=== PATIENT | male | born 1970 | race Caucasian/White ===

== ENCOUNTER 2018-02-09 15:47 | Emergency (ER) | payer OTHER ==
[~2018-02-09] VITALS: Ht 185.4 cm; Wt 95.3 kg
[2018-02-09 15:54] VITALS: BP 130/82
--- NOTE | 2018-02-09 16:21 | CT SCAN REPORT ---
EXAMINATION: CT ABDOMEN AND PELVIS WITHOUT CONTRAST CLINICAL INFORMATION: Left lower quadrant pain. Left flank pain. COMPARISON: None TECHNIQUE: Multidetector volumetric imaging was performed from the superior aspect of the liver through the pubic symphysis. Sagittal and coronal reformatted images were obtained on the technologist's workstation. DLP: 504 mGy-cm FINDINGS: LUNG BASES: The visualized lung bases are unremarkable. LIVER, GALLBLADDER, AND BILIARY TREE: The liver is diffusely low in attenuation. There are increased areas of density adjacent to the gallbladder fossa consistent with fatty sparing. No definite focal lesion identified on this noncontrast study. The gallbladder is unremarkable with no evidence of radiopaque gallstones, gallbladder wall thickening, or obvious pericholecystic inflammatory changes. PANCREAS: Unremarkable. SPLEEN: Unremarkable. ADRENAL GLANDS: Unremarkable. KIDNEYS AND URETERS: The right kidney is normal in size, shape, and attenuation. No hydronephrosis, hydroureter. There is a 1 mm density in the upper pole. There is a similar finding in the lower pole.. No perinephric stranding. The left kidney is normal in size. There is mild left renal hydronephrosis. The proximal ureter is minimally dilated. The distal ureter appears normal in caliber. No radiodense renal stone identified. BLADDER: Unremarkable. GASTROINTESTINAL TRACT: No dilated loops of small or large bowel. There is a small hiatal hernia. No intra-abdominal free air or free fluid. Normal appendix. ABDOMINAL WALL: Bilateral fat-containing inguinal hernias, right greater than left. LYMPH NODES: Normal. VASCULAR: Unremarkable. PELVIC VISCERA: The prostate appears within normal limits for size. Seminal vesicles are symmetric and within normal limits. OSSEOUS STRUCTURES: No suspicious lytic or blastic lesion. IMPRESSION: 1. Limited noncontrast study. 2. Mild left renal hydronephrosis. No definite radiodense obstructing stone. The majority of the ureter is essentially within normal limits for caliber. 3. Severe hepatic steatosis. 4. 2 tiny 1 mm nonobstructing stones identified within the collecting system of the right kidney.
[2018-02-09 16:34] LABS: ABSOLUTE BASOPHIL COUNT 0 /CUMM (0.0-0.2); ABSOLUTE EOSINOPHIL COUNT 0.1 /CUMM (0.0-0.7); ABSOLUTE GRANULOCYTE CT 5.7 /CUMM (1.4-6.5); ABSOLUTE LYMPH COUNT 1.9 /CUMM (1.2-3.4); ABSOLUTE MONOCYTE COUNT 0.9 /CUMM (0.10-0.60); BASOPHIL % 0.4 % (0.0-2.0); EOSINOPHIL % 1.4 % (0-5); GRANULOCYTE % 65.9 % (42.2-75.2); HEMATOCRIT 43.5 % (42-52); MEAN CORPUSCULAR HGB 29.8 PG (27.0-31.0); MEAN CORPUSCULAR HGB CONC 33.9 G/DL (33.0-37.0); MEAN CORPUSCULAR VOLUME 87.8 FL (80.0-94.0); PLATELET COUNT 258 /CUMM (130-400); RBC DISTRIBUTION WIDTH 13.1 % (11.5-14.5); RED BLOOD CELL CT 4.95 /CUMM (4.70-6.10); WHITE BLOOD CELL COUNT 8.6 /CUMM (4.8-10.8)
[2018-02-09] MEDS ORDERED: ZOFRAN ODT4 M1 SL (17:25)
[2018-02-09] MEDS ORDERED: IBUPROFEN800 M1 PO (17:25)
[2018-02-09] MEDS ORDERED: FLOMAX0.4 M1 PO (17:25)
--- NOTE | 2018-02-09 17:26 | ED GI/GU/ABDOMINAL COMPLAINT ---
History of Present Illness General Chief Complaint: General Adult Stated Complaint: PT WAS SENT IN BY URGENT CARE Source: patient Exam Limitations: no limitations Vital Signs & Intake/Output Vital Signs & Intake/Output ED Intake and Output 02/10 0000 02/09 1200 Intake Total 0 Output Total Balance 0 Intake, Oral 0 Patient 210 lb Weight Weight Reported by Patient Measurement Method Allergies Coded Allergies: No Known Allergies (02/09/18) Reconcile Medications Ibuprofen 800 MG TABLET 1 TAB PO TID PRN PAIN Ondansetron (Zofran Odt) 4 MG TAB.RAPDIS 1 TAB SL TID PRN NAUSEA Tamsulosin HCl (Flomax) 0.4 MG CAP.ER.24H 1 CAP PO DAILY KIDNEY STONES Triage Note: PT SIB URGENT CARE FOR CT SCAN TO R/O KIDNEY STONE VS DIVERTICULITIS. PT STATES AROUND 0300 THE LEFT SIDED FLANK PAIN BEGAN PAIN 2/10. PT DENIES ANY URINARY S/S. URGENT CARE STATED +2 BLOOD IN URINE. PT LAST MEDICATED AROUND 0500 WITH 650MG TYLENOL PO. VSS. Triage Nurses Notes Reviewed? yes Onset: Abrupt Duration: day(s): (1), better, continues in ED Timing: single episode today Quality/Severity: cramping Severity Numbers: 7 Location: left flank Radiation: back Activities at Onset: none Prior Abdominal Problems: none Past Sexual History: Unobtainable at this time No Modifying Factors: none Associated Symptoms: abdominal pain HPI: 47-year-old male with no medical history presents for evaluation of left flank pain. Patient reports that symptoms started about 24 hours ago and were initially very severe. The pain is located in the left flank and radiates slightly in the left back. Described as sharp and cramping. Patient states when the pain first started was attended 10 currently has improved to a 6 or 7. He reports some associated nausea but no vomiting. No hematuria chest pain shortness of breath fever frequency urgency or dysuria. No numbness or tingling no trauma or triggering event. He has not taken any medicine for the pain. (Boris Barbosa) Past History Travel History Traveled to [place] past 21 day No Medical History Any Pertinent Medical History? see below for history Neurological: NONE EENT: NONE Cardiovascular: NONE Respiratory: NONE Gastrointestinal: NONE Hepatic: NONE Renal: NONE Musculoskeletal: NONE Psychiatric: NONE Endocrine: NONE Surgical History Surgical History: non-contributory Psychosocial History What is your primary language Finnish Tobacco Use: Never used Family History Hx Contributory? No (Boris Barbosa) Review of Systems Review of Systems Constitutional: Reports: no symptoms. EENTM: Reports: no symptoms. Respiratory: Reports: no symptoms. Cardiovascular: Reports: no symptoms. GI: Reports: see HPI, abdominal pain (FLANK PAIN ). Genitourinary: Reports: no symptoms. Musculoskeletal: Reports: no symptoms. Skin: Reports: no symptoms. Neurological/Psychological: Reports: no symptoms. Hematologic/Endocrine: Reports: no symptoms. Immunologic/Allergic: Reports: no symptoms. All Other Systems: Reviewed and Negative (Boris Barbosa) Physical Exam Physical Exam General Appearance: well developed/nourished, no apparent distress, alert, awake Head: atraumatic, normal appearance Eyes: Bilateral: normal appearance, PERRL, EOMI. Ears, Nose, Throat, Mouth: moist mucous membrane Neck: normal inspection, supple, full range of motion Respiratory: normal breath sounds, chest non-tender, no respiratory distress, lungs clear Cardiovascular: regular rate/rhythm, normal peripheral pulses Peripheral Pulses: 2+ radial (R), 2+ radial (L) Gastrointestinal: normal bowel sounds, soft, no organomegaly, tenderness (LEFT FLANK ) Back: normal inspection, normal range of motion, no vertebral tenderness Extremities: normal range of motion Neurologic/Psych: no motor/sensory deficits, awake, alert, oriented x 3, normal gait Skin: intact, normal color, warm/dry Core Measures ACS in differential dx? No Sepsis Present: No Sepsis Focused Exam Completed? No (Boris Barbosa) Progress Differential Diagnosis: AAA, appendicitis, biliary colic, bowel obstruction, cholecystitis, diverticulitis, gastritis, ischemic bowel, inflamm bowel dis, pancreatitis, prostatitis, peptic ulcer, PUD/GERD, perforated viscous, pyelonephritis, ureterolithiasis, urinary retention, urethritis, UTI/pyelo Plan of Care: Orders Procedure Date/time Status URINALYSIS 02/09 1551 Complete TROPONIN LEVEL 02/09 1551 Complete LIPASE 02/09 1551 Complete COMPREHENSIVE METABOLIC PANEL 02/09 1551 Complete CBC WITHOUT DIFFERENTIAL 02/09 1551 Complete Laboratory Tests 02/09/18 1634: Urine Color YEL, Urine Clarity CLEAR, Urine pH 6.0, Ur Specific [place] <= 1.005 , Urine Protein NEG, Urine Ketones NEG, Urine Nitrite NEG, Urine Bilirubin NEG, Urine Urobilinogen 0.2, Ur Leukocyte Esterase NEG, Ur Microscopic SEDIMENT EXAMINED, Urine RBC RARE, Ur Epithelial Cells RARE, Urine Hemoglobin SMALL H, Urine Glucose NEG 02/09/18 1626: Anion Gap 8, Estimated GFR > 60, BUN/Creatinine Ratio 13.0, Glucose 84, Calcium 9.5, Total Bilirubin 0.7, AST 24, ALT 46, Alkaline Phosphatase 63, Troponin I < 0.01, Total Protein 7.5, Albumin 4.5, Globulin 3.0, Albumin/Globulin Ratio 1.5, Lipase 50, CBC w Diff NO MAN DIFF REQ, RBC 4.95, MCV 87.8, MCH 29.8, MCHC 33.9, RDW 13.1, MPV 8.0, Gran % 65.9, Lymphocytes % 22.4, Monocytes % 9.9 H, Eosinophils % 1.4, Basophils % 0.4, Absolute Granulocytes 5.7, Absolute Lymphocytes 1.9, Absolute Monocytes 0.9 H, Absolute Eosinophils 0.1, Absolute Basophils 0 Patient is here for evaluation of left flank pain. Symptoms started abruptly and have improved since first starting. On exam vital signs are stable he does have left flank tenderness. Lab CT scan ordered. Blood work is unremarkable no signs of infection the area but there is a small amount of hemoglobin. The CT scan showed some mild left-sided hydronephrosis without obstructing stone. This examination the patient's rapidly improving symptoms may suggest a previously passed kidney stone. He does have some stones in the right kidney. Patient also has severe hepatic steatosis. Reviewed results patient. He is feeling better he's tolerating fluids. He'll be discharged home with a prescription for Flomax ibuprofen and Zofran. He was given strainers for his urine. Follow-up with urology. Discussed return precautions patient agrees Diagnostic Imaging: Viewed by Me: CT Scan. Discussed w/RAD: CT Scan. Radiology Impression: PATIENT: VANESSA RAMESH PRESENT AGE: 47 PATIENT ACCOUNT NO: [id number] : 69 LOCATION: [facility], [place] ORDERING PHYSICIAN: Boris WRIGHT SERVICE DATE: 02/09/18-1550 EXAM TYPE: CAT - CT ABD & PELVIS W/O IV CONTRAS EXAMINATION: CT ABDOMEN AND PELVIS WITHOUT CONTRAST CLINICAL INFORMATION: Left lower quadrant pain. Left flank pain. COMPARISON: None TECHNIQUE: Multidetector volumetric imaging was performed from the superior aspect of the liver through the pubic symphysis. Sagittal and coronal reformatted images were obtained on the technologist's workstation. DLP: 504 mGy -cm FINDINGS: LUNG BASES: The visualized lung bases are unremarkable. LIVER, GALLBLADDER, AND BILIARY TREE: The liver is diffusely low in attenuation. There are increased areas of density adjacent to the gallbladder fossa consistent with fatty sparing. No definite focal lesion identified on this noncontrast study. The gallbladder is unremarkable with no evidence of radiopaque gallstones, gallbladder wall thickening, or obvious pericholecystic inflammatory changes. PANCREAS: Unremarkable. SPLEEN: Unremarkable. ADRENAL GLANDS: Unremarkable. KIDNEYS AND URETERS: The right kidney is normal in size, shape, and attenuation. No hydronephrosis, hydroureter. There is a 1 mm density in the upper pole. There is a similar finding in the lower pole.. No perinephric stranding. The left kidney is normal in size. There is mild left renal hydronephrosis. The proximal ureter is minimally dilated. The distal ureter appears normal in caliber. No radiodense renal stone identified. BLADDER: Unremarkable. GASTROINTESTINAL TRACT : No dilated loops of small or large bowel. There is a small hiatal hernia. No intra-abdominal free air or free fluid. Normal appendix. ABDOMINAL WALL: Bilateral fat-containing inguinal hernias, right greater than left. LYMPH NODES: Normal. VASCULAR: Unremarkable. PELVIC VISCERA: The prostate appears within normal limits for size. Seminal vesicles are symmetric and within normal limits. OSSEOUS STRUCTURES: No suspicious lytic or blastic lesion. IMPRESSION: 1. Limited noncontrast study. 2. Mild left renal hydronephrosis. No definite radiodense obstructing stone. The majority of the ureter is essentially within normal limits for caliber. 3. Severe hepatic steatosis. 4. 2 tiny 1 mm nonobstructing stones identified within the collecting system of the right kidney. DICTATED BY: Judi Christiansen MD DATE/TIME DICTATED:02/09/181606 SUPERINTENDENT WAREHOUSE:[facility] DATE/TIME TRANSCRIBED:02/09/181606 CONFIDENTIAL, DO NOT COPY WITHOUT APPROPRIATE AUTHORIZATION. <Electronically signed in Other Vendor System> SIGNED BY: Judi Christiansen MD 02/09/18 3598 Initial ED EKG: none (Boris Barbosa) Departure Departure Disposition: HOME OR SELF CARE Condition: Stable Clinical Impression Primary Impression: Nephrolithiasis Referrals: Des WHALEY,Vipin Martínez (PCP/Family) Earnest Ortiz MD Additional Instructions: Rest and drink plenty of fluids. Ibuprofen 800 mg every 8 hours as needed for pain. Zofran for nausea. Flomax as directed. Urinate THROUGH a strainer. Make a follow-up with YOUr primary care doctor to review all results of today's visit. YOU should also see Dr. Ortiz urologist as soon as possible. Monitor symptoms closely if you have fever or worsening pain unable tolerate fluids unable to urinate or any other concerns return immediately. Please go over all results of today's visit with your primary care doctor. Contact your primary care doctor to let them know you were here in the emergency room. There may be nonspecific findings which may not be related to your visit today here in the emergency room but may require further evaluation and chronic monitoring by your primary care doctor. If you had a laceration today the chance of foreign body always remains. You should follow-up with your primary care doctor for recheck in 3-5 days for a wound check. If you had an x-ray done there is a chance that a fracture could have been missed on initial read and you should follow-up with your primary care doctor for repeat x-rays if symptoms persist. If your blood pressure was elevated here in the emergency room please have rechecked by [facility] primary care doctor within the next 48. If you were prescribed a narcotic here in the emergency room or any type of controlled substances you're not allowed to drive while taking this medication or operate any type of heavy machinery. Narcotics can make you feel lightheaded dizziness nausea and can cause constipation. You may need to metal pickling equipment operator a stool softener. Thank you for choosing [facility] emergency room. Please return to the emergency room immediately if you have any other concerns worsening of symptoms. Departure Forms: Customer Survey General Discharge Information Prescriptions: Current Visit Scripts Tamsulosin HCl (Flomax) 1 CAP PO DAILY #15 CAP Ibuprofen 1 TAB PO TID PRN PAIN #30 TAB Ondansetron (Zofran Odt) 1 TAB SL TID PRN NAUSEA #15 TAB (Boris Barbosa) PA/SHAPE BRICK MOLDER Co-Sign Statement Statement: ED Attending supervision documentation- [] I saw and evaluated the patient. I have also reviewed all the pertinent lab results and diagnostic results. I agree with the findings and the plan of care as documented in the PA's/SHAPE BRICK MOLDER's documentation. [X] I have reviewed the ED Record and agree with the PA's/SHAPE BRICK MOLDER's documentation. [] Additions or exceptions (if any) to the PAs/SHAPE BRICK MOLDER's note and plan are summarized below: [] (Andre Rodriguez DO
== END 2018-02-09 17:35 ==
LOC: ERH 15:47
PROVIDERS: Physician Assistant Medical
DX: N20.0 Calculus of kidney (principal)
CPT/HCPCS: 74176; 81001